=== PATIENT | male | born 1970 | race American Indian/Alaskan Native ===

== ENCOUNTER 2022-04-05 00:43 | Emergency (ER) | payer MEDICAID ==
[2022-04-05] MEDS ORDERED: fentaNYL 100 MCG/2 ML INJ IV ONE (07:45)
[2022-04-05] MEDS ORDERED: ONDANSETRON 4 MG/2 ML INJ IV ONE (07:45)
--- NOTE | 2022-04-05 07:51 | Emergency Department Report ---
HPI - General Chief Complaint: Abdominal Pain Time Seen by Provider: 04/05/22 07:37 - HPI HPI: Room 2 Patient is a 51-year-old male present with chief complaint of abdominal pain. Patient states yesterday morning he developed lower abdominal pain/cramping that feels as though he needs to use the restroom. Patient states he then had multiple episodes of diarrhea. Patient states after the fifth episode he noticed some streaks of blood in his diarrhea. Patient denies nausea vomiting. Patient denies recent antibiotic use. Patient denies history of fever. Patient currently gives his pain a score of 8/10 ED Past Medical Hx - Past Medical History Previous Medical History?: Yes Hx Hypertension: Yes - Surgical History Past Surgical History?: No Additional Surgical History: Bilateral hip repair - Family History Family history: no significant - Social History Smoking Status: Current Every Day Smoker (1/3 pack/day) Substance Use Type: None (Denies illicit drug) - Medications Home Medications: Home Medications Medication Instructions Recorded Confirmed Last Taken Type Ciprofloxacin HCl 500 mg PO BID #14 04/05/22 Unknown Rx Diphenoxylate/Atropine [Lomotil] 2 tab PO QID PRN #20 04/05/22 Unknown Rx HYDROcodone/APAP 5-325 [[place] 1 - 2 each PO Q6HR PRN #7 tablet 04/05/22 Unknown Rx 5/325] ED Review of Systems ROS: Stated complaint: ABDOMINAL PAIN BLOOD IN STOOL Other details as noted in HPI Constitutional: denies: fever Eyes: denies: eye pain ENT: denies: throat pain Respiratory: no symptoms reported Cardiovascular: denies: chest pain Endocrine: no symptoms reported Gastrointestinal: abdominal pain, diarrhea. denies: nausea, vomiting Genitourinary: denies: dysuria Musculoskeletal: denies: back pain Neurological: denies: headache Physical Exam - Physical Exam Vital Signs: Vital Signs 04/05/22 04/05/22 00:47 07:22 Temperature 98.2 F Pulse Rate 66 63 Respiratory 16 18 Rate Blood Pressure 126/92 131/96 [Right] O2 Sat by Pulse 100 95 Oximetry Physical Exam: GENERAL: The patient is well-developed well-nourished male lying on stretcher using cell phone not appearing to be in acute distress. [] HEENT: Normocephalic. Atraumatic. Extraocular motions are intact. Patient has moist mucous membranes. NECK: Supple. Trachea midline CHEST/LUNGS: Clear to auscultation. There is no respiratory distress noted. HEART/CARDIOVASCULAR: Regular. There is no tachycardia. There is no gallop rub or murmur. ABDOMEN: Abdomen is soft, with diffuse discomfort to palpation. There is no rebound or guard. Patient has normal bowel sounds. There is no abdominal distention. SKIN: There is no rash. There is no edema. There is no diaphoresis. NEURO: The patient is awake, alert, and oriented. The patient is cooperative. The patient has no focal neurologic deficits. The patient has normal speech. GCS 15 MUSCULOSKELETAL: There is no evidence of acute injury. ED Course Vital Signs 04/05/22 04/05/22 00:47 07:22 Temperature 98.2 F Pulse Rate 66 63 Respiratory 16 18 Rate Blood Pressure 126/92 131/96 [Right] O2 Sat by Pulse 100 95 Oximetry - Reevaluation(s) Reevaluation #1: 04/05/22 10:50 Patient desats to the 70s on room air. Patient placed on 4 L nasal cannula ED Medical Decision Making - Lab Data Result diagrams: 04/05/22 07:52 Laboratory Tests 04/05/22 04/05/22 04/05/22 07:52 07:52 07:52 WBC 5.6 RBC 4.98 Hgb 14.8 Hct 44.7 MCV 90 MCH 30 MCHC 33 RDW 15.7 H Plt Count 420 PT 13.5 INR 0.91 APTT 31.0 Sodium 137 Potassium 4.3 Chloride 100.7 Carbon Dioxide 24 Anion Gap 17 BUN 14 Creatinine 0.9 Estimated GFR > 60 BUN/Creatinine Ratio 16 Glucose 92 Calcium 9.1 Total Bilirubin 0.40 AST 13 ALT 13 Alkaline Phosphatase 85 Total Protein 6.8 Albumin 4.3 Albumin/Globulin Ratio 1.7 Lipase 24 - Radiology Data Radiology results: report reviewed (CT abdomen pelvis), image reviewed (CT abdomen pelvis) [facility] [address] [place] [address] Cat Scan Report Signed Patient: SHARDA DAUGHERTY MR#: [id number] : 1970 Acct:[id number] Age/Sex: 51 / M ADM Date: 04/05/22 Loc: ED Attending Dr: Ordering Physician: VIJAY MANRIQUE MD Date of Service: 04/05/22 Procedure(s): CT abdomen pelvis w con Accession Number(s): [id number] cc: VIJAY MANRIQUE MD CT ABDOMEN AND PELVIS WITH CONTRAST HISTORY: Lower abdominal pain, diarrhea COMPARISON: None. TECHNIQUE: Axial CT images were obtained through the abdomen and pelvis after 100 cc of Omnipaque 300 IV contrast. Sagittal and coronal reformatted images. All CT scans at this location are performed using CT dose reduction for ALARA by means of automated exposure control. FINDINGS: CT ABDOMEN: Lung Bases: Clear. Liver: No significant abnormality. Biliary: No significant abnormality. Spleen: No significant abnormality. Unenlarged. Pancreas: No significant abnormality. Adrenals: There are bilateral intermediate density adrenal nodules measuring up to 2 cm. These likely represent adrenal adenomas. Consider correlation with CT or MRI adrenal protocol with contr ast. Kidneys: No significant abnormality. Lymphatics: No lymphadenopathy. Vasculature: No significant abnormality. Bowel/Peritoneum: There is mild circumferential thickening of the distal colon which could be related to a nonspecific colitis. The remaining bowel loops are unremarkable. There is no evidence for obstruction, ascites or fluid collection. Normal appendix. CT PELVIS: : Bilateral hip replacements degenerate artifact in the pelvis. The bladder and prostate gland are grossly unremarkable. Osseous Structures: No acute abnormality. Stable appearance of the bilateral hip replacements. Additional Findings: None IMPRESSION: Findings suggestive of a mild nonspecific colitis. Bilateral adrenal nodules, see above. Signer Name: Angel Luis Alexander Jr, MD Signed: 04/05/2022 10:28 AM Workstation Name: [id number] Transcribed By: TTR Dictated By: ANGEL LUIS ALEXANDER JR, MD Electronically Authenticated By: ANGEL LUIS ALEXANDER JR, MD Signed Date/Time: 04/05/22 1028 DD/ 1024 TD/TT: - Differential Diagnosis Colitis, enteritis, pancreatitis, gastritis Critical care attestation.: If time is entered above; I have spent that time in minutes in the direct care of this critically ill patient, excluding procedure time. ED Disposition Clinical Impression: Acute colitis Disposition: 01 HOME / SELF CARE / HOMELESS Is pt being admited?: No Does the pt Need Aspirin: No Condition: Stable Instructions: Colitis Additional Instructions: Return to the emergency department should you develop worsening symptoms, inability to tolerate food or liquids, high fever or any other concerns Prescriptions: Ciprofloxacin HCl 500 mg PO BID #14 Diphenoxylate/Atropine [Lomotil] 2 tab PO QID PRN #20 PRN Reason: Diarrhea HYDROcodone/APAP 5-325 [[place] 5/325] 1 - 2 each PO Q6HR PRN #7 tablet PRN Reason: Pain Referrals: YUMIKO WALKER MD [Primary Care Provider] - 3-5 Days JUAN HOYT MD [Staff Physician] - 3-5 Days (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 Please follow-up with him for further evaluation) Time of Disposition: 11:01
[2022-04-05] MEDS ORDERED: SODIUM CHLORIDE 0.9% 1000 ML 1,000 ML IV ONE (08:00)
[2022-04-05 08:16] LABS: INR 0.91 (0.87-1.13)
[2022-04-05 09:37] LABS: Alanine Aminotransferase 13 units/L (7-56); Albumin 4.3 g/dL (3.9-5); BUN/Creatinine Ratio 16; Blood Urea Nitrogen 14 mg/dL (9-20); Calcium 9.1 mg/dL (8.4-10.2); Hemolysis Index 8
--- NOTE | 2022-04-05 10:32 | Cat Scan Report ---
CT ABDOMEN AND PELVIS WITH CONTRAST HISTORY: Lower abdominal pain, diarrhea COMPARISON: None. TECHNIQUE: Axial CT images were obtained through the abdomen and pelvis after 100 cc of Omnipaque 300 IV contrast. Sagittal and coronal reformatted images. All CT scans at this location are performed us ing CT dose reduction for ALARA by means of automated exposure control. FINDINGS: CT ABDOMEN: Lung Bases: Clear. Liver: No significant abnormality. Biliary: No significant abnormality. Spleen: No significant abnormality. Unenlarged. Pancreas: No significant abnormality. Adrenals: There are bilateral intermediate density adrenal nodules measuring up to 2 cm. These likely represent adrenal adenomas. Consider correlation with CT or MRI adrenal protocol with contrast. Kidneys: No significant abnormality. Lymphatics: No lymphadenopathy. Vasculature: No significant abnormality. Bowel/Peritoneum: There is mild circumferential thickening of the distal colon which could be related to a nonspecific colitis. The remaining bowel loops are unremarkable. There is no evidence for obstr uction, ascites or fluid collection. Normal appendix. CT PELVIS: : Bilateral hip replacements degenerate artifact in the pelvis. The bladder and prostate gland are grossly unremarkable. Osseous Structures: No acute abnormality. Stable appearance of the bilateral hip replacements. Additional Findings: None IMPRESSION: Findings suggestive of a mild nonspecific colitis. Bilateral adrenal nodules, see above. Signer Name: Angel Luis Alexander Jr, MD Signed: 04/05/2022 10:28 AM Workstation Name: [id number]
[2022-04-05 10:35] VITALS: BP 121/80
[2022-04-05 10:56] LABS: Hematocrit 44.7 % (35.5-45.6); Hemoglobin 14.8 gm/dl (11.8-15.2); Mean Corpuscular HGB Conc 33 % (32-34); Mean Corpuscular Volume 90 fl (84-94); Platelet Count 420 K/mm3 (140-440); Red Blood Count 4.98 M/mm3 (3.65-5.03); Red Cell Distribution Width 15.7 % (13.2-15.2)
== END 2022-04-05 11:28 | disposition home or self-care (01) ==
LOC: ED 00:43
DX: K52.9 Noninfective gastroenteritis and colitis, unspecified (principal); I10 Essential (primary) hypertension; F17.200 Nicotine dependence, unspecified, uncomplicated
CPT/HCPCS: 36415; 74177; 80053; 83690; 85025; 85610; 85730; 96361; 96374; 96375; 99284; J2405; J3010; Q9967